=== PATIENT | male | born 1965 | race Caucasian/White ===

== ENCOUNTER 2016-09-20 06:12 | Day surgery (SDC) | payer OTHER ==
[2016-09-20] MEDS ORDERED: Lactated Ringers 1,000 ML IV SCH (07:00)
[2016-09-20] MEDS ORDERED: Versed 2 MG/2 ML Injection IV ONE (08:00)
[2016-09-20] MEDS ORDERED: DIPRIVAN 200 MG/20 ML IV ONE (08:00)
[2016-09-20] MEDS ORDERED: SUBLIMAZE 100 MCG/2 ML IV ONE (08:00)
--- NOTE | 2016-09-20 10:44 | OP ---
SURGERY DATE/TIME: 09/20/2016806 PREOPERATIVE DIAGNOSIS: Rectal bleeding. POSTOPERATIVE DIAGNOSES: 1) Colitis of the cecum. 2) Sigmoid colon polyp. PROCEDURE: Colonoscopy. SURGEON: Driss Maloney M.D. ANESTHESIA: MAC by Reji Ladd CRNA. ESTIMATED BLOOD LOSS: Minimal. SPECIMENS: Two cold forceps biopsies taken from the cecum and one cold forceps polypectomy of sigmoid colon polyp. DESCRIPTION OF PROCEDURE: After informed written consent was obtained, the patient was taken to the endoscopy suite. He underwent monitored anesthesia and digital rectal exam showed normal sphincter tone and no internal lesions. The scope was then inserted in the rectum and sequentially the entire colonic mucosa was traversed. The level of cecum was reached and verified with direct visualization of ileocecal valve. Upon withdrawal careful mucosal inspection revealed punctate colitis-type area of inflammation in the cecum, two cold forceps biopsies were taken to sample this area. They were nearly healed with no active bleeding. There was some minor bleeding after the cold forceps biopsy. Upon further there was a small sessile polyp in the sigmoid area which was removed in its entirety with cold forceps and sent to pathology testing. Retroflexion was performed prior to withdrawal was within normal limits. The scope was removed and the patient was transferred to the recovery room in excellent condition.
[2016-09-20 10:55] VITALS: O2SAT 97
[2016-09-20 10:57] VITALS: BP 124/73; PULSE 18
== END 2016-09-20 09:49 | disposition home or self-care (01) ==
LOC: SDC 06:12
PROVIDERS: ATTEND Family Medicine
PROC: 0DBH8ZX Excision of Cecum, Via Natural or Artificial Opening Endoscopic, Diagnostic (ICD-10-PCS; principal; 2016-09-20)
PROC: 0DBN8ZX Excision of Sigmoid Colon, Via Natural or Artificial Opening Endoscopic, Diagnostic (ICD-10-PCS; 2016-09-20)
DX: K62.5 Hemorrhage of anus and rectum (principal); K52.9 Noninfective gastroenteritis and colitis, unspecified; D12.5 Benign neoplasm of sigmoid colon
CPT/HCPCS: 00810; 36415; 88305; J2250; J2704; J3010